=== PATIENT | female | born 1980 | race Caucasian/White ===

== ENCOUNTER 2021-10-16 07:22 | Observation (INO) | payer OTHER ==
[2021-10-09 11:17] LABS: BASOPHILS % (AUTO) 0.6 % (0.0-5.0); EOSINOPHILS % (AUTO) 2.2 % (0.0-8.0); HEMATOCRIT 38.9 % (36-48); LYMPHOCYTES % (AUTO) 22.8 % (21.0-51.0); MEAN CORPUSCULAR HEMOGLOBIN 28.7 pg (27.0-33.0); MEAN CORPUSCULAR HGB CONC 32.6 g/dL (32.0-36.0); MONOCYTES % (AUTO) 6.9 % (3.0-13.0); NEUTROPHILS % (AUTO) 66.8 % (40.0-77.0); PLATELET COUNT (AUTO) 211 K/uL (130-400); RED BLOOD CELL COUNT(AUTO) 4.42 MIL/uL (4.00-5.50); RED CELL DISTRIBUTION WIDTH 12.7 % (11.0-15.5); WHITE BLOOD COUNT (AUTO) 8.6 K/uL (4.8-10.8)
[2021-10-15 13:42] VITALS: BP 146/80
[2021-10-16] VITALS (21 sets, daily range): BP systolic 126–159; BP diastolic 63–94
[~2021-10-16] VITALS: Ht 167.6 cm; Wt 107.5 kg
[2021-10-16] MEDS ORDERED: BUPIVACAINE LIPOSOME/PF 266 MG/20 ML ML IJ SCH (08:00)
[2021-10-16] MEDS ORDERED: DEXAMETHASONE SOD PHOSPHATE 4 MG/ML 5ML VIAL ONE (08:15)
[2021-10-16] MEDS ORDERED: PHENAZOPYRIDINE HCL 200 MG TABLET ONE (08:16)
[2021-10-16] MEDS: LACTATED RINGERS 1000ML 1,000 ML IV SCH ×2 (08:46→14:53)
[2021-10-16] MEDS: METRONIDAZOLE 500MG/100ML BAG 100 ML IVPB SCH ×2 (09:03→11:34)
[2021-10-16] MEDS: CEFAZOLIN SODIUM 1 GM VIAL ONE ×2 (09:04→11:28)
[2021-10-16] MEDS ORDERED: LORA10TA7 PO (09:09)
[2021-10-16] MEDS ORDERED: LIDOCAINE 1%-EPI 1:100,000 20 ML VIAL IJ ONE (10:50)
[2021-10-16] MEDS ORDERED: DiphenhydrAMINE HCL 50 MG/ML VIAL ONE (10:50)
[2021-10-16] MEDS ORDERED: FAMOTIDINE 20MG VIAL IV ONE (11:11)
[2021-10-16] MEDS ORDERED: HYDROMORPHONE 1 MG INJ ONE (11:11)
[2021-10-16] MEDS ORDERED: LIDOCAINE PF 100MG/5ML (2%) SYRINGE 5ML ONE (11:15)
[2021-10-16] MEDS ORDERED: GLYCOPYRROLATE 1 MG/5 ML SYRINGE ONE (11:15)
[2021-10-16] MEDS ORDERED: FENTANYL CITRATE PF 50 MCG/1 ML 5ML AMP IV ONE (11:16)
[2021-10-16] MEDS ORDERED: PROPOFOL 10 MG/ML 20ML VIAL IV ONE ×2 (11:16→14:20)
[2021-10-16] MEDS ORDERED: ROCURONIUM 10MG/1ML SYR 10 MG/ML ML ONE ×2 (11:16→12:53)
[2021-10-16] MEDS ORDERED: MIDAZOLAM HCL 1 MG/ML 2ML VIAL ONE (11:16)
[2021-10-16] MEDS ORDERED: ONDANSETRON 4MG INJ ONE ×2 (11:33→14:20)
[2021-10-16] MEDS ORDERED: EPHEDRINE SULFATE 50 MG/ML AMPULE ONE (11:53)
[2021-10-16] MEDS ORDERED: KETOROLAC 30MG VIAL (30MG/ML) ONE ×2 (14:14→14:23)
[2021-10-16] MEDS ORDERED: NEOSTIGMINE 5MG/5ML SYR IV ONE (14:19)
[2021-10-16] MEDS ORDERED: MEPERIDINE-PF 25 MG/ML SYG ONE ×2 (14:44→14:56)
[2021-10-16] MEDS ORDERED: LORAZEPAM 2 MG/ML 1 ML VIAL IVP PRN (16:30)
[2021-10-16] MEDS ORDERED: ONDANSETRON 4MG INJ IVP PRN (16:30)
[2021-10-16] MEDS: MORPHINE 10MG VIAL IM PRN ×2 (16:51→21:02)
[2021-10-16] MEDS: ACETAMINOPHEN 500 MG TABLET PO SCH (18:25)
[2021-10-16] MEDS: KETOROLAC 15MG/ML VIAL (15MG/ML) IV SCH (21:50)
[2021-10-17] MEDS: ACETAMINOPHEN 500 MG TABLET PO SCH (00:51)
[2021-10-17 04:14] VITALS: BP 132/82
[2021-10-17] MEDS: KETOROLAC 15MG/ML VIAL (15MG/ML) IV SCH (06:15)
== END 2021-10-17 07:25 | disposition home or self-care (01) ==
LOC: DAH 07:22 → DAHIP 07:23 → UNDOADMOB 07:23 → WSH 07:23 → DAH 07:23 → WSH 15:55 → DAHIP 15:55 → UNDODISOB 10-17 07:25
PROVIDERS: ADMIT Obstetrics & Gynecology; ATTEND Obstetrics & Gynecology
DX: N92.0 Excessive and frequent menstruation with regular cycle (principal); Z20.822 Contact with and (suspected) exposure to COVID-19; D50.0 Iron deficiency anemia secondary to blood loss (chronic); N39.3 Stress incontinence (female) (male); K66.0 Peritoneal adhesions (postprocedural) (postinfection); D64.9 Anemia, unspecified
CPT/HCPCS: 57288; 58571; S2900; 36415; 84703; 85025; 86850; 86900; 86901; 87635; 96372; 96374; 96375; 96376; A4344; A4606; C9290; C9803; G0378; G0379; J0690; J1100; J1170; J1200; J1885; J2001; J2175; J2250; J2270; J2405; J2704; J2710; J3010; J3490; J7030; J7120